=== PATIENT | female | born 1990 | race Caucasian/White ===

== ENCOUNTER 2017-09-23 10:02 | Emergency (ER) | payer BC ==
[~2017-09-23] VITALS: Ht 170.2 cm; Wt 70.3 kg
[2017-09-23 10:50] VITALS: BP 126/85
--- NOTE | 2017-09-23 10:51 | NUR ---
Patient discharged to home in stable condition. Written and verbal after care instructions given. Patient verbalizes understanding of instruction.
== END 2017-09-23 10:53 | disposition home or self-care (01) ==
LOC: ER 10:04
DX: H10.211 Acute toxic conjunctivitis, right eye (principal); J45.909 Unspecified asthma, uncomplicated; Z90.89 Acquired absence of other organs; Z91.010 Allergy to peanuts; Z91.013 Allergy to seafood
CPT/HCPCS: 99283; A4606; A6402; Z7610